=== PATIENT | male | born 2000 | race Caucasian/White ===

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

== ENCOUNTER 2019-01-17 16:40 | Emergency (ER) | payer MEDICAID ==
[~2019-01-17] VITALS: Ht 177.8 cm; Wt 71.2 kg
[~2019-01-17 16:40] MED LIST: AMOXICILLIN500 M1 PO; MEDROL DOSE PACK4 MG PO
[2019-01-17 16:46] VITALS: Ht 177.8 cm; Wt 71.2 kg
[2019-01-17 17:35] LABS: APPEARANCE SL CLDY (CLEAR); COLOR DK YELLOW (YELLOW); GLUCOSE NEGATIVE (NEGATIVE); KETONE NEGATIVE (NEGATIVE); NITRITE NEGATIVE (NEGATIVE); PROTEIN 1+ mg/dL (NEGATIVE)
[2019-01-17 17:36] LABS: BILIRUBIN NEGATIVE (NEGATIVE)
[2019-01-17 17:37] LABS: WHITE CELLS - URINE 25-50 /hpf (0-5)
[2019-01-17 17:38] LABS: BACTERIA FEW /hpf (NONE SEEN); MUCUS <1+ /lpf (NONE SEEN)
[2019-01-17 18:20] VITALS: BP 122/76
== END 2019-01-17 18:44 | disposition home or self-care (01) ==
LOC: D.ER 16:40
PROVIDERS: Emergency Medicine
DX: A64 Unspecified sexually transmitted disease (principal)

== ENCOUNTER 2019-08-15 19:29 | Emergency (ER) | payer OTHER ==
[~2019-08-15] VITALS: Ht 177.8 cm; Wt 68.0 kg
[2019-08-15 19:44] VITALS: Ht 177.8 cm; Wt 68.0 kg
[2019-08-15] MEDS ORDERED: DICLOFENAC SODI50 MG PO (20:37)
[2019-08-15 21:10] VITALS: BP 122/74
== END 2019-08-15 21:10 | disposition home or self-care (01) ==
LOC: D.ER 19:29
DX: R50.9 Fever, unspecified (principal)